=== PATIENT | male | born 1990 | race African-American/Black ===

== ENCOUNTER 2018-02-01 17:01 | Emergency (ER) | payer SELFPAY ==
[~2018-02-01] VITALS: Ht 180.3 cm; Wt 77.1 kg
[2018-02-01 17:07] VITALS: BP 124/76
--- NOTE | 2018-02-01 17:12 | NUR ---
PT PROVIDED WITH A URINE SPECIMEN CUP.
[2018-02-01 18:08] LABS: APPEARANCE,URINE CLEAR (CLEAR); BILIRUBIN,URINE 1+ (NEGATIVE); BLOOD, URINE 1+ (NEGATIVE); COLOR,URINE ORANGE (YELLOW); LEUKOCYTE ESTERASE ,URINE NEGATIVE (NEGATIVE); NITRITE, URINE NEGATIVE (NEGATIVE); PH,URINE 5.5 (5.0-9.0); UGLUCOSE NEGATIVE (NEGATIVE)
[2018-02-01 18:26] LABS: RBC,URINE 3-10 (FEW) /HPF (0-5); WBC,URINE 0-5 (RARE) /HPF (0-5)
--- NOTE | 2018-02-01 19:08 | NUR ---
Patient ambulated to bed 11. RN evaluating patient at bedside.
--- NOTE | 2018-02-01 19:10 | NUR ---
ASSUMED CARE OF PT AT THIS TIME. C/O LOWER ABDOMINAL/BLADDER PAIN W/ DYSURIA X 3 DAYS. DENIES N/V/D; SKIN IS PINK/WARM/DRY; AAOX4 WITH EVEN AND STEADY GAIT; PATIENT STATES PAIN OF 7/10 AT THIS TIME; VSS; PATIENT POSITIONED FOR COMFORT; HOB ELEVATED; BEDRAILS UP X2; BED DOWN. ER MD MADE AWARE OF PT STATUS. WILL CONTINUE TO MONITOR.
[2018-02-01] MEDS ORDERED: AZITHROMYCIN 250 MG TAB PO ONE (19:55)
[2018-02-01] MEDS ORDERED: cefTRIAXone 250 MG in LIDOCAINE MPF 1% - **ER/OR** 0.9 ML IM ONE (19:55)
[2018-02-01 20:40] VITALS: BP 122/71
== END 2018-02-01 20:40 | disposition home or self-care (01) ==
LOC: MED 17:01
DX: Z72.51 High risk heterosexual behavior (principal)
CPT/HCPCS: 81001; 87086; 96372; 99284; J0696; J2001